=== PATIENT | male | born 1950 | race Caucasian/White ===

== ENCOUNTER 2020-11-10 07:39 | Outpatient (CLI) | payer MEDICARE, MEDICAID, SELFPAY ==
--- NOTE | 2020-11-10 08:04 | CT_ITS ---
WS: [id number] CT RIGHT HIP, NONCONTRAST. HISTORY: RT HIP PAIN Technique: All CT scans at [facility] use at least one of these dose optimization techniq ues: automated exposure control; mA and/or kV adjustment per patient size (includes targeted exams wh ere dose is matched to clinical indication); or iterative reconstruction. DLP: 725.73 mGycm COMPARISON: Radiographs 01/01/2019. No fractures or dislocations. No sclerotic or lytic changes in the bone. There is very minimal narrow ing of the hip joint. Bony fragment or calcific density anterior to the femoral head has been present since 2010. May be from prior trauma. No significant joint effusion. Soft tissues surrounding the hi p are age appropriate. Moderate arterial calcifications in the femoral and deep profunda. CT/CT hip RT wo con* [id number] IMPRESSION: 1. Very mild degenerative changes at the hip joint. 2. No fracture or dislocation. 3. Atherosclerotic calcifications.
== END 2020-11-10 07:40 | disposition home or self-care (01) ==
LOC: RADWPI 07:42
PROVIDERS: PCP Family Medicine; Visit Provider Family Medicine
DX: M25.551 Pain in right hip (principal)
CPT/HCPCS: 73700

== ENCOUNTER 2020-12-10 13:29 | Outpatient (CLI) | payer MEDICARE, MEDICAID, SELFPAY ==
--- NOTE | 2020-12-10 14:12 | CT_ITS ---
WS: [id number] CT ABDOMEN PELVIS TECHNIQUE: Contrast-enhanced CT of the abdomen and pelvis with coronal and sagittal reformatted image s. CLINICAL INFORMATION: RIGHT LOWER QUADRANT PAIN COMPARISON: CT 6 ,018 DLP: 1115.[address] scans at [facility] use at least one of these dose optimization techniques: automat ed exposure control; mA and/or kV adjustment per patient size (includes targeted exams where dose is matched to clinical indication); or iterative reconstruction. FINDINGS: Diffuse thickening with inflammatory stranding involving the sigmoid colon left lower quadrant. Findi ngs consistent with acute diverticulitis. Induration in the surrounding fat. No evidence of drainable abscess or fluid collection. Diffuse fatty infiltration liver. Hepatomegaly. Cholecystectomy. Inspissated secretions in the proxim al appendix but no evidence of acute appendicitis. Appendix measures approximately 5.3 mm. No signifi cant surrounding inflammatory stranding or edema. Portal vein and splenic vein are patent. Fatty atrophy of the pancreas. Normal GE junction. Lung base s are well aerated. Adrenal glands are normal. Normal renal parenchymal enhancement. No hydronephrosi s. Exophytic right renal cortical cyst. Normal caliber abdominal aorta. Tiny fat-containing hernia. CT/CT abdomen pelvis w con* [id number] IMPRESSION: 1. Diffuse thickening with inflammatory stranding and edema involving the sigm oid colon left lower quadrant consistent with acute diverticulitis. No drainabl e abscess or fluid collection. 2. Inspissated high attenuation secretions in the proximal appendix which marcial ures 5.3 mm although no evidence of acute appendicitis. Distal appendix is norm al. If suspicion for acute appendicitis, recommend short interval follow-up. 3. Hepatomegaly with diffuse fatty infiltration liver. 4. Cholecystectomy. 5. No other significant changes from previous.
[2020-12-10 14:58] LABS: Blood Urea Nitrogen 14 mg/dL (8-23); Glomerular Filtration Rate 66.4 mL/min (90-130)
[2020-12-10] MEDS: iohexol 300 mg/mL 100 mL Btl IV (15:00)
== END 2020-12-10 13:30 | disposition home or self-care (01) ==
LOC: RADWPI 13:38
PROVIDERS: PCP Family Medicine; Visit Provider Family Medicine
DX: R10.31 Right lower quadrant pain (principal); R60.9 Edema, unspecified; K76.0 Fatty (change of) liver, not elsewhere classified; Z90.49 Acquired absence of other specified parts of digestive tract
CPT/HCPCS: 74177; 82565; 84520; Q9967

== ENCOUNTER 2020-12-31 20:00 | Outpatient (CLI) | payer MEDICARE, MEDICAID, SELFPAY | END 2020-12-31 20:01 | disposition home or self-care (01) | LOC: SLEEP 01-01 09:24 | PROVIDERS: PCP Family Medicine; Visit Provider Family Medicine | DX: G47.33 Obstructive sleep apnea (adult) (pediatric) (principal) | CPT/HCPCS: 95811 ==

== ENCOUNTER 2021-05-10 15:00 | Outpatient (CLI) | payer MEDICARE, MEDICAID, SELFPAY ==
--- NOTE | 2021-05-10 15:08 | XR_ITS ---
WS: [id number] Exam: XR chest 2V* [id number] Date/Time of Exam: 05/10/2021 3:08 PM Reason For Exam: HEMOPTYSIS Comparison 06/09/2017. The lungs are clear and fully inflated. Cardiomediastinal silhouette is unremarkable. A permanent car diac pacer superimposes the left chest. No pleural effusion. Normal regional bony structures. XR/XR chest 2V* [id number] IMPRESSION: 1. No acute cardiopulmonary finding. No change.
== END 2021-05-10 15:01 | disposition home or self-care (01) ==
PROVIDERS: PCP Family Medicine; Visit Provider Family Medicine
DX: R04.2 Hemoptysis (principal)
CPT/HCPCS: 71046

== ENCOUNTER 2021-05-13 12:40 | Outpatient (CLI) | payer MEDICARE, MEDICAID, SELFPAY ==
--- NOTE | 2021-05-13 12:55 | CT_ITS ---
WS: [id number] Exam: CT chest w con* [id number] Date/Time of Exam: 05/13/2021 1:18 PM Reason For Exam: HEMOPTYSIS DLP: 955.[address] scans at [facility] use at least one of these dose optimization techniques: automat ed exposure control; mA and/or kV adjustment per patient size (includes targeted exams where dose is matched to clinical indication); or iterative reconstruction. The lungs are clear and fully expanded. The airway is patent. The thoracic aorta is normal in caliber . No significant mediastinal or hilar lymphadenopathy. No pleural or pericardial effusion noted. Pace r leads are noted in the heart. No destructive bone lesions are seen. CT sections of the upper abdome n are unremarkable. CT/CT chest w con* [id number] IMPRESSION: 1. No sign of pulmonary mass or significant lymphadenopathy in the chest. 2. Mild plaque atelectasis noted in the medial aspect of the right lower lobe.
[2021-05-13 13:43] LABS: Blood Urea Nitrogen 15 mg/dL (8-23); Glomerular Filtration Rate 83.4 mL/min (90-130)
[2021-05-13] MEDS: iohexol 300 mg/mL 100 mL Btl IV (13:55)
== END 2021-05-13 12:41 | disposition home or self-care (01) ==
PROVIDERS: PCP Family Medicine; Visit Provider Family Medicine
DX: R04.2 Hemoptysis (principal); J98.11 Atelectasis
CPT/HCPCS: 71260; 82565; 84520; Q9967

== ENCOUNTER 2021-07-13 09:59 | Outpatient (CLI) | payer MEDICARE, MEDICAID, SELFPAY ==
--- NOTE | 2021-07-13 10:06 | XR_ITS ---
WS: [id number] Exam: XR KUB [id number] Date/Time of Exam: 07/13/2021 10:06 AM Reason For Exam: ABDOMINAL BLOATING/ABDOMINAL PAIN Comparison 09/27/2016. No bowel obstruction or free air. No sign of organ enlargement. Signs of prior cholecystectomy. Regio nal bony elements are unremarkable. XR/XR KUB [id number] IMPRESSION: 1. No acute abdominal finding.
== END 2021-07-13 10:00 | disposition home or self-care (01) ==
PROVIDERS: PCP Family Medicine; Visit Provider Family Medicine
DX: R10.9 Unspecified abdominal pain (principal); R14.0 Abdominal distension (gaseous)
CPT/HCPCS: 74018

== ENCOUNTER → 2021-11-19 09:14 | Outpatient (BNVA) | payer MEDICARE, MEDICAID, SELFPAY | PROVIDERS: PCP Family Medicine; Visit Provider Internal Medicine Cardiovascular Disease | DX: Z95.0 Presence of cardiac pacemaker (principal) ==

== ENCOUNTER → 2021-12-20 09:48 | Outpatient (BNVA) | payer MEDICARE, MEDICAID, SELFPAY | PROVIDERS: PCP Family Medicine; Visit Provider Internal Medicine Cardiovascular Disease | DX: I48.0 Paroxysmal atrial fibrillation (principal); I10 Essential (primary) hypertension; J44.9 Chronic obstructive pulmonary disease, unspecified | CPT/HCPCS: 99214 ==

== ENCOUNTER → 2022-06-20 09:47 | Outpatient (BNVA) | payer MEDICARE, MEDICAID, SELFPAY | PROVIDERS: PCP Family Medicine; Visit Provider Internal Medicine Cardiovascular Disease | DX: I48.0 Paroxysmal atrial fibrillation (principal); Z95.0 Presence of cardiac pacemaker; G47.33 Obstructive sleep apnea (adult) (pediatric); I10 Essential (primary) hypertension; J44.9 Chronic obstructive pulmonary disease, unspecified | CPT/HCPCS: 99213; 99214 ==

== ENCOUNTER 2022-09-04 01:20 | Emergency (ER) | payer MEDICARE, MEDICAID, SELFPAY ==
[2022-09-04 01:25] VITALS: BP 156/93; PULSE 61; RESP 22; TEMP 36.4; O2SAT 100
[2022-09-04 01:30] VITALS: BP 162/98; PULSE 64; RESP 15; O2SAT 100
--- NOTE | 2022-09-04 01:31 | ECG_ITS ---
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1950 Requested By: Bertin Silverio Order Number: [id number] Robert MD: Zenon Pierre Measurements Intervals [place] Rate: 63 P: 0 OK: 0 QRS: -86 QRSD: 159 T: 80 QT: 425 QTc: 438 Interpretive Statements ELECTRONIC VENTRICULAR PACEMAKER ABNORMAL RHYTHM ECG INTERPRETATION BASED ON A DEFAULT AGE OF 40 YEARS Compared to ECG 06/07/2017 12:01:40 Sinus rhythm no longer present Left-axis deviation no longer present Electronically Signed On 09-04-2022 15:13:07 REAL ESTATE ATTORNEY by Zenon Pierre [id number] f
--- NOTE | 2022-09-04 01:56 | XRR_ITS ---
PROCEDURE INFORMATION: Exam: XR Chest Exam date and time: 09/04/2022 2:05 AM Age: 72 years old Clinical indication: Shortness of breath; Prior surgery; Surgery date: 6+ months; Surgery type: Pacemaker; Additional info: SOB TECHNIQUE: Imaging protocol: Radiologic exam of the chest. Views: 1 view. COMPARISON: CT chest w con* [id number] 05/13/2021 1:49 PM FINDINGS: Tubes, catheters and devices: There is left-sided pacemaker with intact leads overlying the right atrium and right ventricle. Lungs: Unremarkable. No consolidation. Pleural spaces: Unremarkable. No pleural effusion. No pneumothorax. Heart/Mediastinum: Unremarkable. No cardiomegaly. Bones/joints: Unremarkable. XR/XR chest 1V portable [id number] IMPRESSION: No acute disease.
[2022-09-04 02:03] LABS: Basophils # 0.1 10^3/uL (0.0-0.1); Basophils % 1.1 %; Eosinophils # 0.3 10^3/uL (0.0-0.8); Eosinophils % 4.4 %; Hematocrit 47.1 % (42.0-52.0); Hemoglobin 15.9 g/dL (11.7-16.6); Lymphocytes % 30.2 %; Mean Corpuscular HGB Conc 33.8 g/dL (30.0-36.0); Mean Corpuscular Hemoglobin 30.3 pg (28.0-34.0); Mean Corpuscular Volume 89.9 fl (80-94); Mean Platelet Volume 11.1 fL (7.4-10.4); Monocytes # 0.8 10^3/uL (0.2-0.9); Monocytes % 12.4 %; Neutrophils # 3.41 10^3/uL (1.8-7.7); Neutrophils % 51.4 %; Nucleated Red Blood Cells % 0 %; Platelet Count 161 10^3/cmm (130-400); Red Blood Count 5.24 10^6/uL (4.1-5.3); Red Cell Distribution Width 13.2 % (12.1-15.1); White Blood Count 6.6 10^3/uL (4.0-10.0)
--- NOTE | 2022-09-04 02:05 | W.ED.SOB ---
HPI - SOB/Dyspnea General: Chief Complaint: Shortness of Breath/Dyspnea Stated Complaint: SOB Time Seen by Provider: 09/04/22 01:28 Source: patient History of Present Illness: HPI Narrative: 72-year-old gentleman presenting with shortness of breath. He says it is hard to breathing, and has been so for the past week or so. He was seen at his doctor's office on the 12th, and was given medicine for fluid because his legs have been swelling. He has had a nonproductive cough. No fever. Significant nasal congestion which she says makes it hard to breathe. No overt chest pain. MD elicited complaint: shortness of breath and cough Pertinent past history: other Onset (ago): day(s) Timing: progressively worsening Severity: moderate Exacerbating factors: lying flat and exertion Relieving factors: nothing Associated symptoms: Reports chest congestion, cough, lightheadedness and nausea; Deny abdominal pain, chest pain, diaphoresis, dizziness or vomiting Treatment prior to arrival: other Review of Systems Const: Denies: diaphoresis Eyes: Denies: change in vision ENMT: Denies: throat pain Card: Reports: lightheadedness; Denies: chest pain Resp: Reports: chest congestion GI: Reports: nausea; Denies: abdominal pain or vomiting Skin/Breast: Denies: rash Neuro: Denies: headache(s) or dizziness PFS ED PFSH: Medical History Anemia Anxiety Atrial fibrillation Pt has prolonged bleeding - so not on any anticoagulant Chronic prostatitis COPD (chronic obstructive pulmonary disease) Daytime somnolence GERD (gastroesophageal reflux disease) Hypertension Hypertension 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 requiring medication Osteoarthritis Pacemaker Surgical History History of hand surgery History of permanent cardiac pacemaker placement History of tonsillectomy Hx of cholecystectomy S/P TURP Family History Mother CAD (coronary artery disease) Brother CAD (coronary artery disease) Sister Diabetes Denies family history of Clotting disorder Dementia Chronic kidney disease (CKD) Suicide Anesthesia complication Bleeding disorder Lung disease Cancer Stroke Social History Smoking and tobacco status: never smoked Alcohol intake: never Physical Exam Const: COMMON NORMALS: no acute distress GENERAL APPEARANCE: cooperative and anxious HENMT: COMMON NORMALS: normocephalic, atraumatic, external ears normal and Normal external nose present HEAD & SCALP: normocephalic and atraumatic NOSE: Normal external nose present and Normal nares present EXTERNAL EAR: Yes external ears normal Eye: COMMON NORMALS: Equal, round and reactive pupils present and EOMs intact bilaterally PUPIL: Yes Equal, round and reactive pupils present Neck/C-Spine: COMMON NORMALS: full ROM GENERAL: Yes trachea midline Chest: CHEST: Yes Symmetrical chest wall rise Resp: COMMON NORMALS: normal respiratory effort, No use of accessory muscles and clear to auscultation bilaterally AUSCULTATION: clear to auscultation bilaterally Cardio: COMMON NORMALS: regular rate and regular rhythm RATE: regular rate RHYTHM: regular rhythm GI: COMMON NORMALS: Normal to inspection, nondistended, normoactive bowel sounds present and Soft to palpation PALPATION: Yes Soft to palpation Extremity: GENERAL: Yes edema (1+) Neuro: EMERALD COMA SCALE: document GCS findings [place] coma scale eye opening: Spontaneous [place] coma scale verbal response: Orientated [place] coma scale motor response: Obey commands [place] coma scale total score: 15 Psych: COMMON NORMALS: mental status grossly normal Course Vital Signs: Vital signs: Vital Signs Temperature 97.6 F 09/04/22 01:25 Pulse Rate 64 09/04/22 02:30 Respiratory Rate 21 H 09/04/22 02:30 Blood Pressure 136/85 09/04/22 02:30 Pulse Oximetry 100 09/04/22 02:30 Oxygen Delivery Me thod 09/04/22 01:30 MDM - SOB/Dyspnea Medical Decision Making 72-year-old male gentleman complains of congestion and shortness of breath. His saturation has been 100% essentially his entire stay on room air. His chest x-ray does not reveal infiltrate although it does show cardiomegaly. His vitals are good otherwise. His CBC is normal. His BMP is not remarkable. His BNP is only 954. Swabs for influenza and COVID are negative. Given his congestion, will be treated for acute bronchitis. Lab Data 09/04/22 01:44 09/04/22 01:44 Labs/Radiology: Laboratory Results WBC 6.6 10^3/uL (4.0-10.0) 09/04/22 01:44 RBC 5.24 10^6/uL (4.1-5.3) 09/04/22 01:44 Hgb 15.9 g/dL (11.7-16.6) 09/04/22 01:44 Hct 47.1 % (42.0-52.0) 09/04/22 01:44 MCV 89.9 fl (80-94) 09/04/22 01:44 MCH 30.3 pg (28.0-34.0) 09/04/22 01:44 MCHC 33.8 g/dL (30.0-36.0) 09/04/22 01:44 RDW 13.2 % (12.1-15.1) 09/04/22 01:44 Plt Count 161 10^3/cmm (130-400) 09/04/22 01:44 MPV 11.1 fL (7.4-10.4) H 09/04/22 01:44 Neut % (Auto) 51.4 % 09/04/22 01:44 Lymph % (Auto) 30.2 % 09/04/22 01:44 [place] % (Auto) 12.4 % 09/04/22 01:44 Eos % (Auto) 4.4 % 09/04/22 01:44 Baso % (Auto) 1.1 % 09/04/22 01:44 Neut # (Auto) 3.41 10^3/uL (1.8-7.7) 09/04/22 01:44 Lymph # (Auto) 2.0 10^3/uL (0.8-4.8) 09/04/22 01:44 [place] # (Auto) 0.8 10^3/uL (0.2-0.9) 09/04/22 01:44 Eos # (Auto) 0.3 10^3/uL (0.0-0.8) 09/04/22 01:44 Baso # (Auto) 0.1 10^3/uL (0.0-0.1) 09/04/22 01:44 Nucleated RBC % (auto) 0 % 09/04/22 01:44 Nucleated RBCs # 0.0 /100WBC 09/04/22 01:44 Sodium 133 mmol/L (136-145) L 09/04/22 01:44 Potassium 4.2 mmol/L (3.5-5.1) 09/04/22 01:44 Chloride 101 mmol/L (98-107) 09/04/22 01:44 Carbon Dioxide 23 mmol/L (22-29) 09/04/22 01:44 Anion Gap 13.2 (5-19) 09/04/22 01:44 BUN 12 mg/dL (8-23) 09/04/22 01:44 Creatinine 0.7 mg/dL (0.7-1.2) 09/04/22 01:44 GFR Calculation Not Reportable 09/04/22 01:44 Glucose 100 mg/dL (65-115) 09/04/22 01:44 Calculated Osmolality 276 mOsm/kg (285-295) L 09/04/22 01:44 Calcium 8.9 mg/dL (8.5-10.5) 09/04/22 01:44 Total Bilirubin 0.4 mg/dL (0.15-1.2) 09/04/22 01:44 AST 32 U/L (0-40) 09/04/22 01:44 ALT 36 U/L (0-41) 09/04/22 01:44 Alkaline Phosphatase 62 U/L (40-130) 09/04/22 01:44 NT-Pro-B Natriuret Pep 954 pg/mL (0-125) H 09/04/22 01:44 Total Protein 6.9 g/dL (6.6-8.7) 09/04/22 01:44 Albumin 4.1 g/dL (3.5-5.2) 09/04/22 01:44 Globulin 2.8 g/dL (1.3-4.6) 09/04/22 01:44 Influenza Type A Ag negative (Negative) 09/04/22 02:04 Influenza Type B Ag negative (Negative) 09/04/22 02:04 SARS-CoV-2 Ag (Rapid) negative (Negative) 09/04/22 02:04 Discharge Plan Discharge Patient Disposition: Home Clinical Impression: Acute bronchiolitis Condition: Stable Prescriptions: New doxycycline hyclate 100 mg capsule 100 mg PO BID 7 Days Qty: 14 0RF albuterol sulfate 90 mcg/actuation HFA aerosol inhaler 2 inh inhalation Q4H PRN (Reason: shortness of breath or wheezing) Qty: 6.7 1RF Mucinex 600 mg tablet extended release 12hr 600 mg PO BID PRN (Reason: congestion) Qty: 14 0RF No Action enalapril maleate [Vasotec] 20 mg tablet 20 mg PO BID docusate sodium [Colace] 100 mg capsule 100 mg PO DAILY polyethylene glycol 3350 [Miralax] 17 gram powder in packet 17 gm PO BID simethicone [Gas Relief (simethicone)] 180 mg capsule 180 mg PO BID PRN montelukast 10 mg tablet 10 mg PO DAILY melatonin 10 mg tablet extended release 10 mg PO BEDTIME sulindac 150 mg tablet 150 mg PO BID tamsulosin 0.4 mg capsule 0.4 mg PO DAILY hydrocodone-acetaminophen 5-325 mg tablet 1 tab PO BID PRN (Reason: pain) finasteride 5 mg tablet 5 mg PO DAILY cyclobenzaprine 10 mg tablet See Rx Instructions .ROUTE .COMPLEX Qty: 30 0RF Dose Instruction: TAKE 1 TABLET BY MOUTH EVERY 8 HOURS NEEDED Rx Instructions: TAKE 1 TABLET BY MOUTH EVERY 8 HOURS NEEDED Metamucil 3.4 gram/5.4 gram powder 1 tbsp PO BID Qty: 660 2RF Rx Instructions: mix into at least 8 oz of water or juice before administering potassium chloride [Klor-Con M10] 10 mEq tablet,ER particles/crystals 10 meq PO DAILY Qty: 30 3RF Rx Instructions: Take when taking Furosemide furosemide 20 mg tablet 20 mg PO QAM Qty: 30 0RF Rx Instructions: Take with Potassium pill Discharge Orders: Discharge ED (Routine); Ordered 09/04/22 Ordered By: Bertin Villafuerte Referrals: Jean Claude Nieves MD [Primary Care Provider] - 1-3 days Patient Instructions: Acute Bronchitis (ED) Activity Restrictions/Additional Instructions: Return for worsening shortness of breath despite treatment, fever despite 3-4 doses of antibiotics, chest pain, any other concerning symptoms. Use your inhaler every 4 hours while awake for the next 48 hours, then as needed. Coding Level of Care Code ED Hearse Driver for Genevieveg Fwd Exam Comprehensive
[2022-09-04 02:28] LABS: Influenza A by IFA negative (Negative); Influenza B by IFA negative (Negative)
[2022-09-04 02:29] LABS: SARS Covid-2 Antigen negative (Negative)
[2022-09-04 02:30] VITALS: BP 136/85; PULSE 64; RESP 21; O2SAT 100
[2022-09-04 02:32] LABS: Alanine Aminotransferase 36 U/L (0-41); Albumin Level 4.1 g/dL (3.5-5.2); Alkaline Phosphatase 62 U/L (40-130); Anion Gap 13.2 (5-19); Aspartate Amino Transferase 32 U/L (0-40); Blood Urea Nitrogen 12 mg/dL (8-23); Calcium 8.9 mg/dL (8.5-10.5); Carbon Dioxide 23 mmol/L (22-29); Chloride 101 mmol/L (98-107); Globulin 2.8 g/dL (1.3-4.6); Glucose 100 mg/dL (65-115); NT Pro B Type Natriuretic Pept 954 pg/mL (0-125); Osmolality Calculated 276 mOsm/kg (285-295); Potassium 4.2 mmol/L (3.5-5.1); Sodium 133 mmol/L (136-145); Total Bilirubin 0.4 mg/dL (0.15-1.2); Total Protein 6.9 g/dL (6.6-8.7)
[2022-09-04] MEDS: doxycycline 100 mg Tablet PO (02:57)
[2022-09-04] MEDS: dexamethasone 4 mg/mL INJ 8 MG IVP (02:57)
[2022-09-04 03:06] VITALS: BP 146/96; PULSE 70; RESP 25; O2SAT 99
== END 2022-09-04 03:15 | disposition home or self-care (01) ==
PROVIDERS: Emergency Provider Emergency Medicine; PCP Family Medicine
DX: J44.0 Chronic obstructive pulmonary disease with (acute) lower respiratory infection (principal); J21.9 Acute bronchiolitis, unspecified; Z20.822 Contact with and (suspected) exposure to COVID-19; Z95.0 Presence of cardiac pacemaker
CPT/HCPCS: 71045; 80053; 83880; 85025; 87426; 87804; 93005; 96374; 99285; J1100

== ENCOUNTER → 2022-10-04 09:35 | Outpatient (BNVA) | payer MEDICARE, MEDICAID, SELFPAY | PROVIDERS: PCP Family Medicine; Visit Provider Family Medicine | DX: R60.9 Edema, unspecified (principal); I48.91 Unspecified atrial fibrillation; I10 Essential (primary) hypertension | CPT/HCPCS: 80053; 83880; 85025 ==

== ENCOUNTER 2022-10-21 09:44 | Outpatient (CLI) | payer MEDICARE, MEDICAID, SELFPAY ==
--- NOTE | 2022-10-21 10:00 | USCV_ITS ---
Keon Kowalski Age: 72 Gender: M : 1950 Exam Date: 10/21/2022 10:00 Ordering Phys: Jean Claude Nieves MD Technologist: BRAYAN [place] [facility] [place]: BLE PAIN AND SWELLING HISTORY: Lower extremity pain. Lower extremity swelling. PROCEDURES: Venous duplex imaging was performed in bilateral lower extremities. The following venous structures were evaluated: common femoral vein, profunda vein, proximal portion of the greater saphenous vein, superficial femoral vein, and the popliteal vein. In addition, the posterior tibial and peroneal trunk were evaluated. Serial compression, augmentation maneuvers, and spectral Doppler flow evaluation were performed. FINDINGS: Normal 2-D Doppler and augmentation and compressibility throughout the lower extremity venous structures. Additional imaging through the proximal calf veins also reveals no thrombus. Limited evaluation of the greater saphenous vein is patent with no thrombus. CONCLUSIONS No DVT bilateral lower extremities. Dr. Elidia Barrera DO (Electronically Signed) Final Date: 21 October 2022 11:49 S
== END 2022-10-21 09:45 | disposition home or self-care (01) ==
LOC: RAD 09:46
PROVIDERS: PCP Family Medicine; Visit Provider Family Medicine
DX: M79.89 Other specified soft tissue disorders (principal); M79.604 Pain in right leg; M79.605 Pain in left leg
CPT/HCPCS: 93970

== ENCOUNTER 2023-04-18 10:04 | Outpatient (CLI) | payer MEDICARE, MEDICAID, SELFPAY ==
--- NOTE | 2023-04-18 10:17 | XRR_ITS ---
PROCEDURE INFORMATION: Exam: XR Chest Exam date and time: 04/18/2023 10:26 AM Age: 73 years old Clinical indication: Cough with hemorrhage; Prior surgery; Surgery date: 6+ months; Surgery type: Pacemaker; Additional info: Hemoptysis TECHNIQUE: Imaging protocol: Radiologic exam of the chest. Views: 2 views. Total images: 2 COMPARISON: CR XR chest 1V portable [id number] 09/04/2022 2:05 AM FINDINGS: Tubes, catheters and devices: A pacemaker device is present, its leads in appropriate position. Lungs: Unremarkable. No consolidation. Pleural spaces: Unremarkable. No pleural effusion. No pneumothorax. Heart/Mediastinum: Heart size is stable when compared to the prior exam. Bones/joints: Unremarkable. Organs: Surgical clips are present in the right upper quadrant which are suggestive of prior cholecystectomy. XR/XR chest 2V* [id number] IMPRESSION: No acute cardiopulmonary process.
[2023-04-18 10:48] LABS: Basophils # 0.1 10^3/uL (0.0-0.1); Basophils % 1.1 %; Eosinophils # 0.2 10^3/uL (0.0-0.8); Eosinophils % 4.1 %; Hematocrit 46.7 % (42.0-52.0); Hemoglobin 15.6 g/dL (11.7-16.6); Lymphocytes # 1.7 10^3/uL (0.8-4.8); Lymphocytes % 30.2 %; Mean Corpuscular HGB Conc 33.4 g/dL (30.0-36.0); Mean Corpuscular Hemoglobin 29.2 pg (28.0-34.0); Mean Corpuscular Volume 87.5 fl (80-94); Mean Platelet Volume 10.2 fL (7.4-10.4); Monocytes # 0.7 10^3/uL (0.2-0.9); Monocytes % 12.4 %; Neutrophils # 2.87 10^3/uL (1.8-7.7); Neutrophils % 51.7 %; Nucleated Red Blood Cells % 0 %; Platelet Count 150 10^3/cmm (130-400); Red Blood Count 5.34 10^6/uL (4.1-5.3); Red Cell Distribution Width 13.2 % (12.1-15.1); White Blood Count 5.6 10^3/uL (4.0-10.0)
[2023-04-18 11:00] LABS: INR 1.03 (0.8-1.2)
[2023-04-18 11:04] LABS: Alanine Aminotransferase 16 U/L (0-41); Albumin Level 3.9 g/dL (3.5-5.2); Alkaline Phosphatase 75 U/L (40-130); Anion Gap 13.4 (5-19); Aspartate Amino Transferase 18 U/L (0-40); Blood Urea Nitrogen 11 mg/dL (8-23); Calcium 8.7 mg/dL (8.5-10.5); Carbon Dioxide 27 mmol/L (22-29); Chloride 101 mmol/L (98-107); Globulin 2.7 g/dL (1.3-4.6); Glucose 100 mg/dL (65-115); Osmolality Calculated 283 mOsm/kg (285-295); Potassium 4.4 mmol/L (3.5-5.1); Sodium 137 mmol/L (136-145); Total Bilirubin 0.5 mg/dL (0.15-1.2); Total Protein 6.6 g/dL (6.6-8.7)
== END 2023-04-18 10:05 | disposition home or self-care (01) ==
LOC: RAD 10:09
PROVIDERS: PCP Family Medicine; Visit Provider Family Medicine
DX: R04.2 Hemoptysis (principal); Z51.81 Encounter for therapeutic drug level monitoring; Z95.0 Presence of cardiac pacemaker
CPT/HCPCS: 36415; 71046; 80053; 85025; 85610

== ENCOUNTER → 2023-06-05 09:54 | Outpatient (BNVA) | payer MEDICARE, MEDICAID, SELFPAY | PROVIDERS: PCP Family Medicine; Visit Provider Internal Medicine Cardiovascular Disease | DX: I48.0 Paroxysmal atrial fibrillation (principal); R06.02 Shortness of breath; M79.89 Other specified soft tissue disorders; Z95.0 Presence of cardiac pacemaker; G47.33 Obstructive sleep apnea (adult) (pediatric); I11.0 Hypertensive heart disease with heart failure; I50.30 Unspecified diastolic (congestive) heart failure | CPT/HCPCS: 36415; 80048; 83880; 99214 ==

== ENCOUNTER 2023-06-06 06:36 | Outpatient (CLI) | payer MEDICARE, MEDICAID, SELFPAY ==
--- NOTE | 2023-06-06 06:46 | CT_ITS ---
WS: [id number] CT chest w con* [id number] HISTORY: Hemoptysis TECHNIQUE: Axial imaging performed through the thorax. Coronal and sagittal reformats are submitted. All CT scans at [facility] use at least one of these dose optimization techniques: automated exposure control; mA and/or kV adjustment per patient size (includes targeted exams where dose is mat ched to clinical indication); or iterative reconstruction. CONTRAST: Omnipaque 350; 100 mL IV. DLP: 553.20 mGy COMPARISON: 05/13/2021 and chest radiograph 04/18/2023 Lungs and central airway: Lungs are slightly hyperexpanded. There are a few scattered benign granulom natalia. No pulmonary mass or nodule or pneumonia. No significant bronchiectasis Pleura: Minimal LEFT pleural-based calcifications. No associated mass. Heart and pericardium: Mild LEFT heart enlargement. No pericardial effusion. Mediastinum and yogi: No significantly enlarged lymph nodes. There is mildly prominent bilateral yogi r lymphoid tissue but not significantly enlarged. Vessels: LEFT subclavian pacer. Very mild atherosclerosis aorta. Normal sized pulmonary artery. No ce ntral filling defects. Chest wall and lower neck: No soft tissue masses. Upper abdomen: Small hiatal hernia. No adrenal mass. Prior cholecystectomy. Osseous structures: Mild thoracic spondylosis. Bone island LEFT glenoid. IMPRESSION: 1. No pulmonary mass, nodule or pneumonia. 2. Very minimal LEFT pleural calcifications with no associated mass. May be related to a prior proced ure or effusion. Not a typical distribution for asbestosis. 3. Mild cardiomegaly. 4. No adenopathy. 5. Prior cholecystectomy.
[2023-06-06] MEDS: iohexol 350 mg/mL 500 mL Btl (per mL) IV (06:59)
== END 2023-06-06 06:37 | disposition home or self-care (01) ==
LOC: RAD 06:37
PROVIDERS: PCP Family Medicine; Visit Provider Family Medicine
DX: R04.2 Hemoptysis (principal); I51.7 Cardiomegaly
CPT/HCPCS: 71260; 99204; Q9967

== ENCOUNTER 2023-06-16 10:54 | Outpatient (CLI) | payer MEDICARE, MEDICAID, SELFPAY ==
--- NOTE | 2023-06-16 11:00 | USCV_ITS ---
Keon Kowalski Age: 73 Gender: M : 1950 Exam Date: 06/16/2023 11:04 Ordering Phys: Felecia Barrera MD ([email or web address]) Technologist: Exam Location: [facility] Indication: chest pain murmur BP: 130 / 70 HR: 60 Rhythm: Sinus Technical Quality: Adequate MEASUREMENTS (Male / Female) Normal Values 2D ECHO LV Diastolic Diameter PLAX 3.4 cm 4.2 - 5.9 / 3.9 - 5.3 cm LV Systolic Diameter PLAX 2.6 cm IVS Diastolic Thickness 1.4 cm 0.6 - 1.0 / 0.6 - 0.9 cm IVS Systolic Thickness 2.1 cm LVPW Diastolic Thickness 1.4 cm 0.6 - 1.0 / 0.6 - 0.9 cm LVPW Systolic Thickness 1.9 cm LVOT Diameter 2.2 cm LV Ejection Fraction 2D Teich 39.7 % LV Ejection Fraction MOD 2C 69.1 % LV Ejection Fraction 2C AL 68.1 % LA Diameter 4.6 cm Aorta at Sinotubular Diameter 3.5 cm IVC Diameter 2.4 cm M-MODE Aortic Annulus Diameter 3.9 cm LA Ao Ratio MM 1.0 MV E Point Septal Separation 1.2 cm DOPPLER AV Peak Velocity 147.0 cm/s LVOT Peak Velocity 74.0 cm/s AV Area Cont Eq vti 2.1 cm squared AV Area Cont Eq pk 1.9 cm squared MV Area PHT 4.1 cm squared Mitral E to A Ratio 3.1 MV E' Velocity 92.0 cm/s Mitral E to LV E' Septal Ratio 17.7 TR Peak Velocity 340.3 cm/s TR Peak Gradient 46.3 mmHg TV Peak E Velocity 95.0 cm/s Right Atrial Pressure 3.0 mmHg Pulmonary Artery Systolic Pressu 49.3 mmHg RV Acceleration Time 0.1 s FINDINGS Left Ventricle Hypokinetic apical septal and apical lateral lieberman. Normal LV size and ejection fraction of 68%. Right Ventricle Catheter/pacemaker wire in the right ventricular cavity. Right Atrium Mildly increased right atrial size. Catheter/pacemaker wire in the right atrial cavity. Left Atrium Mildly increased left atrial size. Mitral Valve No gross abnormalities noted Aortic Valve Minimally thickened Tricuspid Valve Trace tricuspid valve regurgitation. Mild pulmonary hypertension Etimated pulmonary artery peak systolic pressure 49 mm of Hg. Pulmonic Valve Pulmonic valve not well visualized. Pericardium Normal pericardium without effusion. Aorta Normal ascending aorta dimension. IVC Inferior vena cava not visualized. CONCLUSIONS Hypokinetic apical septal and apical lateral lieberman. Normal LV size and ejection fraction of 68%. Mild biatrial enlargement Pacemaker wire in the right atrium and right ventricle Minimally thickened aortic valve Trace tricuspid valve regurgitation. Mild pulmonary hypertension Etimated pulmonary artery peak systolic pressure 49 mm of Hg. There is no pericardial effusion. Compared to the study from 05/20/2017. The biatrial enlargement/pacemaker wire- appeared to be new Dr Felecia Barrera MD [facility] (Electronically Signed) Final Date: 19 June 2023 14:00 S
== END 2023-06-16 10:55 | disposition home or self-care (01) ==
PROVIDERS: PCP Family Medicine; Visit Provider Internal Medicine Cardiovascular Disease
DX: R06.09 Other forms of dyspnea (principal); I50.9 Heart failure, unspecified; Z95.0 Presence of cardiac pacemaker; I35.8 Other nonrheumatic aortic valve disorders; I27.20 Pulmonary hypertension, unspecified
CPT/HCPCS: 93306

== ENCOUNTER 2023-06-27 07:58 | Outpatient (CLI) | payer MEDICARE, MEDICAID, SELFPAY | END 2023-06-27 07:59 | disposition home or self-care (01) | LOC: RT 07:59 | PROVIDERS: PCP Family Medicine; Visit Provider Internal Medicine Pulmonary Disease | DX: R06.09 Other forms of dyspnea (principal); R06.02 Shortness of breath | CPT/HCPCS: 94010; 94618; 94726; 94729 ==

== ENCOUNTER 2023-08-15 13:46 | Outpatient (CLI) | payer MEDICARE, MEDICAID, SELFPAY ==
[2023-08-15 14:33] LABS: Anion Gap 12.5 (5-19); Blood Urea Nitrogen 8 mg/dL (8-23); Calcium 8.8 mg/dL (8.5-10.5); Carbon Dioxide 31 mmol/L (22-29); Chloride 96 mmol/L (98-107); Glucose 143 mg/dL (65-115); NT Pro B Type Natriuretic Pept 624 pg/mL (0-125); Osmolality Calculated 281 mOsm/kg (285-295); Potassium 4.5 mmol/L (3.5-5.1); Sodium 135 mmol/L (136-145)
== END 2023-08-15 13:47 | disposition home or self-care (01) ==
LOC: LAB 13:47
PROVIDERS: PCP Family Medicine; Visit Provider Internal Medicine Cardiovascular Disease
DX: R06.02 Shortness of breath (principal)
CPT/HCPCS: 36415; 80048; 83880

== ENCOUNTER → 2023-09-04 14:11 | Outpatient (BNVA) | payer MEDICARE, MEDICAID, SELFPAY | PROVIDERS: PCP Family Medicine; Visit Provider Internal Medicine Pulmonary Disease | DX: R06.09 Other forms of dyspnea (principal); R04.2 Hemoptysis; I50.32 Chronic diastolic (congestive) heart failure; G47.33 Obstructive sleep apnea (adult) (pediatric) | CPT/HCPCS: 99214 ==

== ENCOUNTER → 2023-12-26 09:44 | Outpatient (BNVA) | payer MEDICARE, MEDICAID, SELFPAY | PROVIDERS: PCP Family Medicine; Visit Provider Nurse Practitioner Family | DX: I10 Essential (primary) hypertension (principal); I48.0 Paroxysmal atrial fibrillation; Z95.0 Presence of cardiac pacemaker | CPT/HCPCS: 99214 ==

== ENCOUNTER → 2024-01-19 09:12 | Outpatient (BNVA) | payer MEDICARE, MEDICAID, SELFPAY | PROVIDERS: PCP Family Medicine; Visit Provider Family Medicine | DX: Z51.81 Encounter for therapeutic drug level monitoring (principal); R04.2 Hemoptysis; R73.09 Other abnormal glucose | CPT/HCPCS: 80053; 83036; 85025; 86141; 86480 ==

== ENCOUNTER → 2024-06-24 09:55 | Outpatient (BNVA) | payer MEDICARE, MEDICAID, SELFPAY | PROVIDERS: PCP Family Medicine; Visit Provider Internal Medicine Cardiovascular Disease | DX: I48.0 Paroxysmal atrial fibrillation (principal); Z95.0 Presence of cardiac pacemaker; I11.0 Hypertensive heart disease with heart failure; I50.32 Chronic diastolic (congestive) heart failure; Z87.891 Personal history of nicotine dependence | CPT/HCPCS: 99214 ==

== ENCOUNTER 2024-07-17 15:05 | Oncology outpatient (recurring) (ONCR) | payer MEDICARE, MEDICAID, SELFPAY ==
--- NOTE | 2024-07-01 13:23 | N.ONRAD NP_ITS ---
Radiation Oncology New Patient Visit Patient: Keon Kowalski MR#: [id number] : 1950> Age: 74> Sex: Male> Dictated by: Dr. Clemencia Panda Date of Service: 06/27/2024 Referring Physician(s) : Diagnosis: Adenocarcinoma the prostate Mary score 3+4 PSA approximately 6 (patient is on finasteride with a PSA of 2.8) Radiotherapy to date: Summary > No prior radiation therapy. Chief Complaint / History of Present Illness: Patient is a 74-year-old gentleman who had his first TURP in 2017. He had an additional TURP in 2019. His thinks that he may have even had a third TURP but they are not sure what the date would have been. He recently had an MRI of the pelvis which showed a lesion in the prostate and he subsequently had biopsies of the prostate done. He also had some abnormalities in the bladder wall which were biopsied and these were nonmalignant. At the time of biopsies he had positive biopsies from the right and the left side. 6 out of 10 were positive. His PSA on finasteride is 2.8. He is here today to discuss radiation as a treatment option. Current Medications: albuterol sulfate 90 mcg/actuation (Ventolin HFA) 2 puffs inhalation Q6H PRN citalopram TAKE 1 TABLET BY MOUTH EVERY DAY cyclobenzaprine TAKE 1 TABLET BY MOUTH EVERY 8 HOURS NEEDED docusate sodium TAKE 1 CAPSULE BY MOUTH TWICE A DAY NEEDED enalapril maleate TAKE 1 TABLET BY MOUTH TWICE A DAY finasteride TAKE 1 TABLET BY MOUTH EVERY DAY furosemide TAKE 1 TABLET BY MOUTH EVERY DAY IN THE MORNING hydrocodone-acetaminophen 5-325 mg 1 tab PO BID PRN magnesium hydroxide (Milk of Magnesia) 15 mL PO DAILY PRN melatonin ER 10 mg PO BEDTIME metoprolol tartrate TAKE 1 TABLET BY MOUTH TWICE A DAY montelukast TAKE 1 TABLET BY MOUTH EVERY DAY AT NIGHT polyethylene glycol 3350 (Miralax) 17 grams PO BID potassium chloride ER (Klor-Con M) TAKE 1 TABLET BY MOUTH EVERY DAY TAKE WITH FUROSEMIDE psyllium husk (Metamucil) 1 tbsp PO BID sennosides (senna) TAKE 2 TABLETS BY MOUTH TWICE A DAY NEEDED simethicone (Gas Relief (simethicone)) 180 mg PO BID PRN sulindac 150 mg PO BID tamsulosin TAKE 1 CAPSULE BY MOUTH EVERY DAY AT NIGHT Allergies: NKA Medical History: PFSH: Medical History Daytime somnolence Chronic prostatitis Atrial fibrillation Pt has prolonged bleeding - so not on any anticoagulant Hypertension 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 requiring medication Hypertension Pacemaker Anxiety Osteoarthritis GERD (gastroesophageal reflux disease) Anemia Surgical History History of permanent cardiac pacemaker placement History of tonsillectomy History of hand surgery Hx of cholecystectomy S/P TURP Family History: Mother CAD (coronary artery disease) Brother CAD (coronary artery disease) Sister Diabetes Denies family history of Clotting disorder Dementia Chronic kidney disease (CKD) Suicide Anesthesia complication Bleeding disorder Lung disease Cancer Stroke Social History: Smoking and tobacco/nicotine status: former use of tobacco/nicotine Alcohol intake: never Substance/Drug Use: never Current Complaints / Review of Systems: . Vital Signs: Performed on 06/27/2024 2:41 PM BMI - 30.076 kg/m2 (high), Height - 68 in, Weight - 197.8 lbs, Temperature - 96.8 f, Pulse - 70 /min, Respiration - 18 /min, O2 Sat - 97 %, Pain - 4, Fatigue - 0 and BP - 162/ 85 mm(hg)(high/). General: Patient is in no apparent distress. He is companied by his . HEENT: Normocephalic atraumatic. Pupils are equal, sclera clear, extraocular muscles intact. Cardiovascular: Regular rate and rhythm Pulmonary: Respiratory rate is regular and nonlabored Abdomen: Moderately protuberant and android pattern Extremities: Without obvious edema or lymphedema Neurological: Alert and orient x 3. Gait and speech within normal limits Psych: Affect appropriate for current situation Pathology: [place] score 3+4 equal 7 adenocarcinoma the prostate Impression: [place] score 7 adenocarcinoma the prostate current PSA approximately 6 Plan: I reviewed with the patient the various treatment options ranging from observation to androgen deprivation to external beam radiation and he has previously discussed surgery with Dr. Mendez. We reviewed the simulation process. We discussed the risks and side effects both acute and long-term. We discussed the planning involved in the daily treatment regiment. All of his questions were answered. His had no additional questions. At this point he is elected to proceed with the radiation. He will return to undergo simulation and begin his treatment shortly thereafter with a plan for a 5 and half week course of treatment. Signed by: 07/01/2024 1:22:31 PM <<Signature on File>> Time spent with patient:45 CPT Code: CPT Code:
--- NOTE | 2024-07-09 15:54 | ONCRAD TMN_ITS ---
Radiation Oncology Weekly Treatment Management Patient: Keon Kowalski MR#: [id number] : 1950 Attending Physician: Dr. Elio Joya Date of Service: 07/09/2024 Referring Physician(s) : Diagnosis: C61 - Malignant neoplasm of prostate, Diagnosed 07/02/2024 (Active) Radiotherapy to date: Course: prostate 70 Gy, Treatment Site: Prostate 70Gy, Ref. ID: [id number], Energy: 15X, Dose/Fx (cGy): 250, #Fx: , Dose Correction (cGy): 0, Total Dose Delivered (cGy): 500, Start Date: 07/08/2024, Elapsed Days: 1 Reason for visit: The patient is being seen today as part of their regularly scheduled weekly on treatment visits to assess for acute toxicities from radiotherapy. Review of Systems: Just began treatment. He has occasional nocturia. No dysuria. Good flow. Vital Signs: Performed on 07/09/2024 3:01 PM BMI - 30.41 kg/m2 (high), Height - 68 in, Weight - 200.0 lbs, Temperature - 97.2 f, Pulse - 85 /min, Respiration - 16 /min, O2 Sat - 98 %, Pain - 0, Fatigue - 0 and BP - 174/ 97 mm(hg)(high). Physical Exam: Imaging: Radiation therapy imaging related to accurate target localization (i.e. KV, MV and CBCT) was reviewed. Appropriate changes, if any, were made to ensure treatment accuracy. Plan: Good tolerance of treatment. Will continue as planned. Signed by: Dr. Elio Joya 07/09/2024 3:53:24 PM
--- NOTE | 2024-07-16 16:34 | ONCRAD TMN_ITS ---
Radiation Oncology Weekly Treatment Management Patient: Meghana Santana MR#: [id number] : 1950> Attending Physician: Dr. Elio Joya Date of Service: 07/16/2024 Referring Physician(s) : Diagnosis: C61 - Malignant neoplasm of prostate, Diagnosed 07/02/2024 (Active) Radiotherapy to date: Course: prostate 70 Gy, Treatment Site: Prostate 70Gy, Ref. ID: [id number], Energy: 15X, Dose/Fx (cGy): 250, #Fx: , Dose Correction (cGy): 0, Total Dose Delivered (cGy): 1,750, Start Date: 07/08/2024, Elapsed Days: 8 Reason for visit: The patient is being seen today as part of their regularly scheduled weekly on treatment visits to assess for acute toxicities from radiotherapy. Review of Systems: No sx changes. 1 to 2 x nocturia. Good flow. No pain. Normal bowels. Living alone independently. Vital Signs: Performed on 07/16/2024 3:20 PM BMI - 30.562 kg/m2 (high), Height - 68 in, Weight - 201 lbs, Temperature - 96.7 f, Pulse - 90 /min, Respiration - 18 /min, O2 Sat - 97 %, Pain - 0, Fatigue - 0 and BP - 179/ 102 mm(hg)(high). Physical Exam: omitted Imaging: Radiation therapy imaging related to accurate target localization (i.e. KV, MV and CBCT) was reviewed. Appropriate changes, if any, were made to ensure treatment accuracy. Plan: Good tolerance of treatment. Will continue as planned Signed by: Dr. Elio Joya 07/16/2024 4:33:08 PM
== END 2024-07-17 23:59 | disposition home or self-care (01) ==
PROVIDERS: PCP Family Medicine; Visit Provider Radiology Radiation Oncology
DX: Z51.0 Encounter for antineoplastic radiation therapy (principal); C61 Malignant neoplasm of prostate
CPT/HCPCS: 77300; 77301; 77334; 77338; 77385; 77386; 99024; 99205

== ENCOUNTER 2024-07-18 15:01 | Oncology outpatient (recurring) (ONCR) | payer MEDICARE, MEDICAID, SELFPAY | END 2024-07-18 23:59 | disposition home or self-care (01) | LOC: ONCMED 15:01 | PROVIDERS: PCP Family Medicine; Visit Provider Radiology Radiation Oncology | DX: Z51.0 Encounter for antineoplastic radiation therapy (principal); C61 Malignant neoplasm of prostate | CPT/HCPCS: 77336; 77385 ==

== ENCOUNTER 2024-08-07 14:42 | Oncology outpatient (recurring) (ONCR) | payer MEDICARE, SELFPAY ==
--- NOTE | 2024-07-23 15:53 | ONCRAD TMN_ITS ---
Radiation Oncology Weekly Treatment Management Patient: Meghana Santana MR#: [id number] : 1950> Attending Physician: Dr. Elio Joya Date of Service: 07/23/2024 Referring Physician(s) : Diagnosis: C61 - Malignant neoplasm of prostate, Diagnosed 07/02/2024 (Active) Radiotherapy to date: Course: prostate 70 Gy, Treatment Site: Prostate 70Gy, Ref. ID: [id number], Energy: 15X, Dose/Fx (cGy): 250, #Fx: , Dose Correction (cGy): 0, Total Dose Delivered (cGy): 3,000, Start Date: 07/08/2024, Elapsed Days: 15 Reason for visit: The patient is being seen today as part of their regularly scheduled weekly on treatment visits to assess for acute toxicities from radiotherapy. Review of Systems: No interval changes. Urination stable. 1 to 2 x nocturia. Good stream. No pain. Bowels ok. Active during the day. Vital Signs: Performed on 07/23/2024 3:09 PM BMI - 30.41 kg/m2 (high), Height - 68 in, Weight - 200.0 lbs, Temperature - 97.5 f, Pulse - 81 /min, Respiration - 18 /min, O2 Sat - 96 %, Pain - 0, Fatigue - 0 and BP - 162/ 78 mm(hg)(high/). Physical Exam: omitted Imaging: Radiation therapy imaging related to accurate target localization (i.e. KV, MV and CBCT) was reviewed. Appropriate changes, if any, were made to ensure treatment accuracy. Plan: Good tolerance of treatment .Continue as planned. Signed by: Dr. Elio Joya 07/23/2024 3:51:57 PM
--- NOTE | 2024-07-31 08:14 | ONCRAD TMN_ITS ---
Radiation Oncology Weekly Treatment Management Patient: Keon Kowalski MR#: [id number] : 1950 Attending Physician: Dr. Clemencia Panda Date of Service: 07/30/2024 Fractions: Referring Physician(s) : Diagnosis: C61 - Malignant neoplasm of prostate, Diagnosed 07/02/2024 (Active) Radiotherapy to date: Course: prostate 70 GyTreatment Site: Prostate 70Gy, Ref. ID: [id number], Energy: 15X, Dose/Fx (cGy): 250, #Fx: , Dose Correction (cGy): 0, Total Dose Delivered (cGy): 4,250, Start Date: 07/08/2024, Elapsed Days: 22 Reason for visit: The patient is being seen today as part of their regularly scheduled weekly on treatment visits to assess for acute toxicities from radiotherapy. Review of Systems: Patient continues to do well. He has had no change in bowel or bladder habits. Vital Signs: Performed on 07/30/2024 3:15 PM BMI - 30.562 kg/m2 (high), Height - 68 in, Weight - 201 lbs, Temperature - 96.9 f, Pulse - 86 /min, Respiration - 18 /min, O2 Sat - 99 %, Pain - 4, Fatigue - 0 and BP - 153/ 94 mm(hg)(high). Physical Exam: No changes on exam Imaging: Radiation therapy imaging related to accurate target localization (i.e. KV, MV and CBCT) was reviewed. Appropriate changes, if any, were made to ensure treatment accuracy. Plan: Will continue with his treatments as planned Signed by: Dr. Clemencia Panda 07/31/2024 8:14:05 AM
--- NOTE | 2024-08-06 15:47 | ONCRAD TMN_ITS ---
Radiation Oncology Weekly Treatment Management Patient: Meghana Santana MR#: [id number] : 1950> Attending Physician: Dr. Clemencia Panda Date of Service: 08/06/2024 Fractions 22 out of 28 Referring Physician(s) : Diagnosis: C61 - Malignant neoplasm of prostate, Diagnosed 07/02/2024 (Active) Radiotherapy to date: Course: prostate 70 Gy, Treatment Site: Prostate 70Gy, Ref. ID: [id number], Energy: 15X, Dose/Fx (cGy): 250, #Fx: , Dose Correction (cGy): 0, Total Dose Delivered (cGy): 5,500, Start Date: 07/08/2024, Elapsed Days: 29 Reason for visit: The patient is being seen today as part of their regularly scheduled weekly on treatment visits to assess for acute toxicities from radiotherapy. Review of Systems: Patient has had no additional changes. He has had no problems with bowel or bladder habits. Vital Signs: Performed on 08/06/2024 2:47 PM BMI - 37.739 kg/m2 (high), Height - 68 in, Weight - 200.5 lbs, Temperature - 97 f, Pulse - 64 /min, Respiration - 18 /min, O2 Sat - 97 %, Pain - 3, Fatigue - 0 and BP - 159/ 87 mm(hg)(high/). Physical Exam: No changes on exam Imaging: Radiation therapy imaging related to accurate target localization (i.e. KV, MV and CBCT) was reviewed. Appropriate changes, if any, were made to ensure treatment accuracy. Plan: Will continue with his treatments as planned. He has 6 treatments remaining Signed by: Dr. Clemencia Panda 08/06/2024 3:45:38 PM
== END 2024-08-07 23:59 | disposition home or self-care (01) ==
PROVIDERS: PCP Family Medicine; Visit Provider Radiology Radiation Oncology
DX: Z51.0 Encounter for antineoplastic radiation therapy (principal); C61 Malignant neoplasm of prostate
CPT/HCPCS: 77336; 77385; 99024

== ENCOUNTER 2024-08-14 13:08 | Oncology outpatient (recurring) (ONCR) | payer MEDICARE, SELFPAY ==
--- NOTE | 2024-08-13 15:38 | ONCRAD TMN_ITS ---
Radiation Oncology Weekly Treatment Management Patient: Keon Kowalski MR#: [id number] : 1950 Attending Physician: Dr. Clemencia Panda Date of Service: 08/13/2024 Fractions: 27 out of 28 Referring Physician(s) : Diagnosis: C61 - Malignant neoplasm of prostate, Diagnosed 07/02/2024 (Active) Radiotherapy to date: Course: prostate 70 Gy, Treatment Site: Prostate 70Gy, Ref. ID: [id number], Energy: 15X, Dose/Fx (cGy): 250, #Fx: 27 / 28, Dose Correction (cGy): 0, Total Dose Delivered (cGy): 6,750, Start Date: 07/08/2024, Elapsed Days: 36 Reason for visit: The patient is being seen today as part of their regularly scheduled weekly on treatment visits to assess for acute toxicities from radiotherapy. Review of Systems: Patient still denies any changes in bowel or bladder habits. Vital Signs: Performed on 08/13/2024 3:14 PM BMI - 29.954 kg/m2 (high), Height - 68 in, Weight - 197 lbs, Temperature - 97 f, Pulse - 86 /min, Respiration - 18 /min, O2 Sat - 99 %, Pain - 0, Fatigue - 0 and BP - 157/ 89 mm(hg)(high/). Physical Exam: No changes on exam Imaging: Radiation therapy imaging related to accurate target localization (i.e. KV, MV and CBCT) was reviewed. Appropriate changes, if any, were made to ensure treatment accuracy. Plan: Will continue with his last treatment tomorrow. I talked with him today about his 1 month follow-up with a PSA. He has done very well getting through his treatments with minimal changes Signed by: Dr. Clemencia Panda 08/13/2024 3:37:09 PM
== END 2024-08-17 23:59 | disposition home or self-care (01) ==
PROVIDERS: PCP Family Medicine; Visit Provider Radiology Radiation Oncology
DX: Z51.0 Encounter for antineoplastic radiation therapy (principal); C61 Malignant neoplasm of prostate
CPT/HCPCS: 77336; 77385; 99024

== ENCOUNTER 2024-09-17 13:13 | Oncology outpatient (recurring) (ONCR) | payer MEDICARE, SELFPAY | END 2024-09-17 23:59 | disposition home or self-care (01) | LOC: ONCMED 13:13 | PROVIDERS: PCP Family Medicine; Visit Provider Radiology Radiation Oncology | DX: C61 Malignant neoplasm of prostate (principal) | CPT/HCPCS: 36415; 84153 ==

== ENCOUNTER → 2024-11-04 15:14 | Outpatient (BNVA) | payer MEDICARE, SELFPAY | PROVIDERS: PCP Family Medicine; Visit Provider Family Medicine | DX: N39.0 Urinary tract infection, site not specified (principal) | CPT/HCPCS: 81000; 87086 ==

== ENCOUNTER → 2024-11-18 14:02 | Outpatient (BNVA) | payer MEDICARE, MEDICAID, SELFPAY | PROVIDERS: PCP Family Medicine; Visit Provider Family Medicine | DX: R30.0 Dysuria (principal) | CPT/HCPCS: 87086 ==

== ENCOUNTER 2024-12-16 09:41 | Oncology outpatient (recurring) (ONCR) | payer MEDICARE, MEDICAID, SELFPAY ==
[2024-12-16 10:55] LABS: Prostate Specific Antigen 0.568 ng/mL (0-4)
== END 2024-12-16 23:59 | disposition home or self-care (01) ==
LOC: ONCMED 09:41
PROVIDERS: PCP Family Medicine; Visit Provider Radiology Radiation Oncology
DX: C61 Malignant neoplasm of prostate (principal)
CPT/HCPCS: 36415; 84153

== ENCOUNTER → 2024-12-23 09:00 | Outpatient (BNVA) | payer MEDICARE, MEDICAID, SELFPAY | PROVIDERS: PCP Family Medicine; Visit Provider Nurse Practitioner Family | DX: I48.0 Paroxysmal atrial fibrillation (principal); I10 Essential (primary) hypertension; G47.33 Obstructive sleep apnea (adult) (pediatric); R06.02 Shortness of breath; Z95.0 Presence of cardiac pacemaker | CPT/HCPCS: 99214 ==

== ENCOUNTER → 2025-02-04 13:56 | Outpatient (BNVA) | payer MEDICARE, MEDICAID, SELFPAY | PROVIDERS: PCP Family Medicine; Visit Provider Internal Medicine Cardiovascular Disease | DX: I48.0 Paroxysmal atrial fibrillation (principal); I11.0 Hypertensive heart disease with heart failure; I50.32 Chronic diastolic (congestive) heart failure; Z95.0 Presence of cardiac pacemaker; I48.91 Unspecified atrial fibrillation; R06.02 Shortness of breath; I25.118 Atherosclerotic heart disease of native coronary artery with other forms of angina pectoris | CPT/HCPCS: 99215 ==

== ENCOUNTER 2025-02-21 10:21 | Outpatient (CLI) | payer MEDICARE, MEDICAID, SELFPAY ==
[2025-02-21 11:18] LABS: Basophils # 0.1 10^3/uL (0.0-0.1); Eosinophils # 0.4 10^3/uL (0.0-0.8); Eosinophils % 5.2 %; Hematocrit 43.7 % (37-53); Lymphocytes % 27.5 %; Mean Corpuscular HGB Conc 33.6 g/dL (30-55); Mean Corpuscular Hemoglobin 29.9 pg (27-33); Mean Platelet Volume 9.9 fL (7.4-10.4); Monocytes # 0.9 10^3/uL (0.2-0.9); Monocytes % 12.4 %; Neutrophils # 3.78 10^3/uL (1.8-7.7); Neutrophils % 53.5 %; Nucleated Red Blood Cells % 0 %; Platelet Count 146 10^3/cmm (157-399); Red Blood Count 4.91 10^6/uL (3.85-5.65); Red Cell Distribution Width 13.9 % (12.1-15.1); White Blood Count 7.08 10^3/uL (3.29-11.43)
[2025-02-21 11:50] LABS: Anion Gap 13.4 (5-19); Blood Urea Nitrogen 14 mg/dL (8-23); Calcium 8.7 mg/dL (8.5-10.5); Carbon Dioxide 28 mmol/L (22-29); Chloride 97 mmol/L (98-107); Glucose 112 mg/dL (65-115); Osmolality Calculated 279 mOsm/kg (285-295); Potassium 4.4 mmol/L (3.5-5.1); Prostate Specific Antigen 0.385 ng/mL (0-4); Sodium 134 mmol/L (136-145)
== END 2025-02-21 10:22 | disposition home or self-care (01) ==
LOC: LAB 10:22
PROVIDERS: Radiology Radiation Oncology; PCP Family Medicine; Visit Provider Internal Medicine Cardiovascular Disease
DX: R06.02 Shortness of breath (principal); C61 Malignant neoplasm of prostate; I48.91 Unspecified atrial fibrillation; Z79.01 Long term (current) use of anticoagulants; Z45.010 Encounter for checking and testing of cardiac pacemaker pulse generator [battery]; I25.118 Atherosclerotic heart disease of native coronary artery with other forms of angina pectoris
CPT/HCPCS: 36415; 80048; 84153; 85025; 85610; 86850; 86900

== ENCOUNTER 2025-02-24 07:12 | Outpatient (CLI) | payer MEDICARE, MEDICAID, SELFPAY ==
[2025-02-24] VITALS (12 sets, daily range): BP systolic 118–150; BP diastolic 67–94; PULSE 59–76; RESP 16–18; TEMP 36.4–36.8; O2SAT 94–96; BMI 30.7
--- NOTE | 2025-02-24 07:53 | W.PM.OPSUD ---
Surgery/Procedure H&P Update DATE OF PROCEDURE: February 24, 2025 DATE H&P PERFORMED: 02/04/25 H&P UPDATE INFORMATION: I have reviewed H&P completed within last 30 days, I have examined patient prior to procedure and No changes to prior documentation PREOP DIAGNOSIS: Pacemaker ANTHONY PRIMARY INDICATION FOR PROCEDURE: Patient with a history of atrial fibrillation, essential benign hypertension, obstructive sleep apnea, status post permanent pacer implantation for symptomatic bradycardia PLANNED PROCEDURE: Operation Date: 02/24/25 08:30 Proposed Procedures p Pacemaker Generator Change - REM/REP Dual PPM(Not Applicable) - Felecia Barrera MD PATIENT REASSESSED PRIOR TO SEDATION, WITH NO CHANGE NOTED: Yes PHYSICAL EXAM: alert, oriented x 3 and clear to auscultation bilaterally AIRWAY EVAL/ANESTHESIA PLAN: normal airway, see other exam findings, ASA II, Monitored Anesthesia, Local Anesthesia, Risks, benefits & alternatives of sedation and/or procedure discussed and Patient agrees to continue as planned
--- NOTE | 2025-02-24 10:01 | PM.OP ---
Operative Report Date of procedure: February 24, 2025 Surgeon: Felecia Barrera MD Brief History: This patient had a permanent pacemaker for intermittent atrial fibrillation/symptomatic bradycardia. The pacemaker was found to be in ANTHONY. Procedure: PROCEDURE: PACEMAKER REVISION PREOPERATIVE DIAGNOSIS: Pacemaker elective replacement indication. POSTOPERATIVE DIAGNOSIS: Pacemaker elective replacement indication. ESTIMATED BLOOD LOSS: None COMPLICATIONS: None. BRIEF HISTORY: The patient is 75-year-old white male who had a permanent pacemaker implantation for symptomatic bradycardia/atrial fibrillation. The patient was found to have elective replacement indication, during routine office followup evaluation. For further management of patient's condition for the symptomatic bradycardia, the patient required a pacemaker revision. Patient required a dual-chamber pacemaker for symptom relief and the need for AV synchrony The procedure was explained to the patient and his family in detail with the risks and benefits. The risks of bleeding, hematoma, vascular injury, infection and other concomitant complications were explained in detail, which the patient understood well and consented to proceed. PROCEDURES PERFORMED: 1. Explantation of the old pacemaker generator. 2. Implantation of the new generator. The patient brought to the Cardiac Investments Manager. The left side of the neck and the subclavian area were cleaned and draped in a sterile fashion. 1% Xylocaine was used for local anesthetic agent. A 2 inch long incision was made just below the previous pacemaker scar. By sharp and blunt dissection, the pacemaker pocket was accessed. The old generator was delivered from the pocket. The generator was detached from the lead. The new Medtronic generator was attached to the lead. The pacemaker pocket was copiously irrigated with vancomycin solution. Complete hemostasis was achieved. The lead was positioned behind the generator and the generator was attached to the pectoralis fascia by suturing with 0 Surgilon. Sponge counts were confirmed. The pacemaker pocket was closed in layers. Skin was approximated using 4-0 Vicryl. EXPLANTED DEVICE: Pacemaker Generator: Date of implant: 06/09/1970 Brand: Advisa. Model number: [id number] 01. Serial number: [id number]. Make : Medtronic IMPLANTED DEVICES: Ventricular Lead: Date of implantation: 06/09/2017 Model number: 5076/58 Serial number: [id number] Make: Medtronic. Atrial lead Date of implantation: 06/09/1970 Model number: 5076/50 Serial number: [id number] Make: Medtronic. Implanted Generator: Date of implantation : 02/24/2025 Brand: Angi XT DR MRI Surescan. Model number: W1 DR 01 Serial number: [id number] Make: Clipsure Stimulation Threshold: The ventricular sensing was 13.4 millivolts. Ventricular lead impedance was 380 ohms and the pacing threshold was 1.0 volts at 0.4 milliseconds. The atrial sensing was 1.4 millivolts. Atrial lead impedance was 437 ohms and the pacing threshold was not obtained since the patient was in atrial fibrillation The pacemaker was set for VVIR mode with an upper rate of 130 and a lower rate of 60. A pressure dressing was applied over the pacemaker site. The patient was transferred back to medical floor in stable condition. Sponge counts were correct.
--- NOTE | 2025-02-24 10:12 | PC.NURSE ---
Patient arrived to CPRU 2 post pacemaker generator change until medsur bed available . Pt alert and oriented X 3, breathing even and non-labored on room air. Denies pain. Dressing to left chest clean, dry, and intact. No signs of bleeding or hematoma. Placed on bedside cardiac cath lab radiology technologist. Call light in reach, family at bedside.
[2025-02-24] MEDS: FUROsemide 40 mg Tablet PO (11:04)
[2025-02-24] MEDS: metoprolol tartrate 25 mg Tablet PO ×2 (11:04→16:56)
[2025-02-24] MEDS: finasteride 5 mg Tablet PO (11:04)
[2025-02-24] MEDS: lisinopril 20 mg Tablet PO (16:56)
[2025-02-24] MEDS: ceFAZolin 2,000 mg SDV 2000 MG IVP (16:56)
[2025-02-24] MEDS: montelukast sodium 10 mg Tablet PO (20:15)
[2025-02-24] MEDS: tamsulosin 0.4 mg Capsule PO (20:15)
[2025-02-24] MEDS: MELATONIN 3 MG TABLET 9 MG PO (20:15)
[2025-02-25] MEDS: ceFAZolin 2,000 mg SDV 2000 MG IVP ×2 (01:47→08:58)
[2025-02-25] MEDS: HYDROcodone-acetaminophen 5-325 mg Tablet 1 TAB PO (05:30)
[2025-02-25 06:00] VITALS: PULSE 63
--- NOTE | 2025-02-25 06:00 | ECG_ITS ---
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 Measurements Intervals [place] Rate: 62 P: 0 MD: 0 QRS: 269 QRSD: 176 T: 86 QT: 494 QTc: 502 Interpretive Statements ELECTRONIC VENTRICULAR PACEMAKER ABNORMAL RHYTHM ECG Compared to ECG 09/04/2022 01:31:14 No significant changes Electronically Signed On 02-26-2025 22:20:58 CDT by Felecia Barrera M.D. [email or web address]
[2025-02-25 07:25] VITALS: BP 112/68; PULSE 67; RESP 16; TEMP 36.7; O2SAT 95
--- NOTE | 2025-02-25 08:40 | P.PN_ITS ---
Subjective Subjective: Patient is feeling okay with no chest pain or shortness of breath. No hematoma bleeding from the pacemaker revision site. Vital signs are stable. No new symptoms. Has been tolerating the antibiotics so far well. Medications: Medication Review Details: Current Medications Hydrocodone Bitart/Acetaminophen (Hydrocodone-Acetaminophen 5-325 Mg Tablet) 1 tab PO BID PRN PRN Reason: PAIN Last Admin: 02/25/25 05:30 Dose: 1 tab Albuterol Sulfate (Albuterol 2.5 Mg/3 Ml Neb) 2.5 mg INHALATION Q6H.RESP PRN PRN Reason: shortness of breath or wheezing Cefazolin Sodium (Cefazolin 2,000 Mg Sdv) 2,000 mg IVP Q8H [facility]; Protocol Stop: 02/25/25 09:01 Last Admin: 02/25/25 01:47 Dose: 2,000 mg Citalopram Hydrobromide (Citalopram 20 Mg Tablet) 10 mg PO DAILY [facility] Docusate Sodium (Docusate Sodium 100 Mg Capsule) 100 mg PO BID PRN PRN Reason: CONSTIPATION Finasteride (Finasteride 5 Mg Tablet) 5 mg PO DAILY [facility] Last Admin: 02/24/25 11:04 Dose: 5 mg Furosemide (Furosemide 40 Mg Tablet) 40 mg PO DAILY [facility] Last Admin: 02/24/25 11:04 Dose: 40 mg Sodium Chloride (Sodium Chloride 0.9%) 1,000 mls @ 75 mls/hr IV .[id number] [facility] Last Admin: 02/24/25 21:57 Dose: Not Given Lisinopril (Lisinopril 20 Mg Tablet) 20 mg PO BID [facility] Last Admin: 02/24/25 16:56 Dose: 20 mg Magnesium Hydroxide (Magnesium Hydroxide 30 Ml Udc) 15 ml PO DAILY PRN PRN Reason: CONSTIPATION Melatonin (Melatonin 3 Mg Tablet) 9 mg PO BEDTIME [facility] Last Admin: 02/24/25 20:15 Dose: 9 mg Metoprolol Tartrate (Metoprolol Tartrate 25 Mg Tablet) 25 mg PO BID [facility] Last Admin: 02/24/25 16:56 Dose: 25 mg Montelukast Sodium (Montelukast Sodium 10 Mg Tablet) 10 mg PO BEDTIME [facility] Last Admin: 02/24/25 20:15 Dose: 10 mg Polyethylene Glycol (Polyethylene Glycol 3350 Pkt 17 Gm) 17 gm PO BID [facility] Last Admin: 02/24/25 15:37 Dose: Not Given Potassium Chloride (Potassium Chloride Er 10 Meq Tablet) 10 meq PO DAILY [facility] Psyllium Hydrophilic Mucilloid (Psyllium Powder Pkt) 1 packet PO BID [facility] Last Admin: 02/24/25 15:37 Dose: Not Given Senna (Sennosides 8.6 Mg Tablet) 17.2 mg PO BID PRN PRN Reason: CONSTIPATION Simethicone (Simethicone 80 Mg Chew) 160 mg PO BID PRN PRN Reason: gas relief Tamsulosin HCl (Tamsulosin 0.4 Mg Capsule) 0.4 mg PO BEDTIME [facility] Last Admin: 02/24/25 20:15 Dose: 0.4 mg Vitals/I&O/Wt Last Vital Signs Temp 98.0 F 02/25/25 07:25 Pulse 67 02/25/25 07:25 Resp 16 02/25/25 07:25 BP 112/68 02/25/25 07:25 Pulse Ox 95 02/25/25 07:25 O2 Del Method Room Air 02/25/25 07:25 02/24/25 02/25/25 02/25/25 22:59 06:59 14:59 Intake Total 360 / 600 120 / 120 Balance 360 / 600 120 / 120 Weight last 48 hrs Weight 208 lb Weight 202 lb Weight 202 lb Physical Exam Narrative: GENERAL: The patient is alert and oriented times three. Not in any acute distress. HEENT: No significant pallor, icterus or lymphadenopathy.Oral cavity: There are no mucous membrane lesions. NECK: Trachea appears to be central. No masses noted. No JVD or thyromegaly appreciated. RESPIRATORY: Chest is symmetrical. No intercostals muscle retraction or any accessory muscle activation. There is no chest wall tenderness. Breath sounds are heard bilaterally. No rales or rhonchi heard. No evidence of any consolidation. The pacemaker insertion site has no hematoma or bleeding. BREASTS: Deferred. HEART: The heart sounds are normal. No S3 or S4. No significant murmurs. No pericardial rub ABDOMEN: No vessel pulsations or distention. No tenderness. No organomegaly appreciated. Bowel sounds are normally heard. : Deferred. RECTAL: Deferred. LYMPHATIC: No lymphadenopathy noted in the neck or groin. EXTREMITIES: No edema or cyanosis. No clubbing. Peripheral pulses are palpated in fairly good volume and amplitude MUSCULOSKELETAL: No acute joint deformities or swelling SKIN: There are no significant scars or skin rash noted. NEUROPSYCHIATRIC: The patient is alert and oriented x3. Appears to be in a good mood. No tremors or rigidity noted. A&P Assessment and plan (1) Pacemaker at end of battery life: Patient had a pacemaker revision yesterday. He is doing okay with no hematoma or bleeding. Pacemaker function appears to be appropriate. (2) Hypertension: Currently normotensive. May continue on the current medications. (3) Atrial fibrillation: The ventricular response rate is under control. The patient is mostly pacemaker dependent (4) Diastolic heart failure: Currently compensated. May continue on the current medications. Plan Patient may be discharged home today. Discharge orders are written. Appointment the [facility] in 1 week for pacemaker check and wound check PDMP PDMP Reviewed: Not Reviewed Attestations Medical Necessity Statement*: Discharge home today Coding Level of Care Code 37415 Diagnoses Pacemaker at end of battery life Z45.010 Essential hypertension I10 Hypertension type: essential hypertension Paroxysmal atrial fibrillation I48.0 Atrial fibrillation type: paroxysmal Chronic diastolic heart failure I50.32 Heart failure chronicity: chronic
[2025-02-25] MEDS: potassium chloride ER 10 mEq Tablet PO (08:57)
[2025-02-25] MEDS: citalopram 20 mg Tablet 10 MG PO (08:57)
[2025-02-25] MEDS: lisinopril 20 mg Tablet PO (08:58)
[2025-02-25] MEDS: FUROsemide 40 mg Tablet PO (08:58)
[2025-02-25] MEDS: finasteride 5 mg Tablet PO (08:58)
[2025-02-25] MEDS: metoprolol tartrate 25 mg Tablet PO (08:58)
[2025-02-25] MEDS: polyethylene glycol 3350 Pkt 17 gm PO (08:59)
[2025-02-25] MEDS: albuterol 2.5 mg/3 mL Neb INHALATION (09:43)
[2025-02-25 09:45] VITALS: PULSE 61; RESP 16; O2SAT 93
--- NOTE | 2025-02-25 10:36 | PC.CHAP ---
Pastoral Care Encounter/Spiritual Assessment Type of Contact [] Declined job forwarder visit [] Patient/Family/Request visit [] Outpatient visit [] Follow-up visit [] Physician referral [] Code/Alert [] Routine visit [] Staff referral [] Actively dying [] Patient sleeping [] Family support [] [] Out of room [] Palliative care [] [x] Receiving care in room [] Pre-surgical visit [] Trauma [] Long length of stay [] ICU visit [] Other: Relational/Emotional Strength [] Patient feels connected with others/family/visitors/staff [] Distress [] Loneliness/isolation [] Abandonment Spirituality of Patient [] Person of Yadira [] Attends Adventism of their Yadira [] Believes in Prayer [] Reads Bible or Samaritan materials [] There are Spiritual issues to be addressed Electrologist Interventions [] Prayer [] Active listening [] Non-anxious presence [] Spiritual/emotional support [] Crisis/trauma care [] Spiritual counseling [] Bereavement support [] Provided bereavement packet [] Provided Bible/devotional materials [] Provided toy/stuffed animal, coloring book to patient or family member [] Provided Communion [] Anointing/Butler [] Salvation [] Completed spiritual assessment [] Other: Impact on Illness or Injury [] Angry [] Fearful [] Anxious [] Often cries [] Exhaustion [] Unable to work [] Unable to attend oriental orthodox [] Unable to walk/stand [] Unable to read [] Unable to drive [] Unable to eat/drink [] Unable to sleep [] Unable to be with family [] Patient intubated [] Other: Summary Time spent with patient
[2025-02-25 11:58] VITALS: BP 124/74; PULSE 60; RESP 18; TEMP 36.5; O2SAT 97
--- NOTE | 2025-02-25 13:19 | PC.NURSE ---
Discussed discharge with patient. Went over new medications, continued medications and all restrictions due to pacemaker. Went over follow up appoints as well. Patient verbalized understanding.
== END 2025-02-25 11:29 | disposition home or self-care (01) ==
LOC: CCL 07:14 → MEDSURG 18:05
PROVIDERS: PCP Family Medicine; Visit Provider Internal Medicine Cardiovascular Disease
DX: Z45.010 Encounter for checking and testing of cardiac pacemaker pulse generator [battery] (principal); I11.0 Hypertensive heart disease with heart failure; I50.32 Chronic diastolic (congestive) heart failure; G47.33 Obstructive sleep apnea (adult) (pediatric); K21.9 Gastro-esophageal reflux disease without esophagitis; Z82.49 Family history of ischemic heart disease and other diseases of the circulatory system
CPT/HCPCS: 33228; 36415; 93005; 94640; 97165; 99152; 99153; C1769; C1786; J0690; J2250; J3010; J3370; J7030; J7050; J7613; J9999

== ENCOUNTER → 2025-03-06 14:50 | Outpatient (BNVA) | payer MEDICARE, MEDICAID, SELFPAY | PROVIDERS: PCP Family Medicine; Visit Provider Nurse Practitioner Family | DX: Z09 Encounter for follow-up examination after completed treatment for conditions other than malignant neoplasm (principal); I48.91 Unspecified atrial fibrillation; Z95.0 Presence of cardiac pacemaker | CPT/HCPCS: 99214 ==

== ENCOUNTER 2025-03-17 10:34 | Oncology outpatient (recurring) (ONCR) | payer MEDICARE, MEDICAID, SELFPAY | END 2025-03-17 23:59 | disposition home or self-care (01) | PROVIDERS: PCP Family Medicine; Visit Provider Radiology Radiation Oncology | DX: C61 Malignant neoplasm of prostate (principal) | CPT/HCPCS: 36415 ==

== ENCOUNTER → 2025-04-15 11:40 | Outpatient (BNVA) | payer MEDICARE, MEDICAID, SELFPAY | PROVIDERS: PCP Family Medicine; Visit Provider Family Medicine | DX: Z51.81 Encounter for therapeutic drug level monitoring (principal) | CPT/HCPCS: 80053 ==

== ENCOUNTER 2025-06-24 14:59 | Oncology outpatient (recurring) (ONCR) | payer MEDICARE, MEDICAID, SELFPAY ==
[2025-06-24 15:43] LABS: Prostate Specific Antigen 0.285 ng/mL (0-4)
--- NOTE | 2025-06-25 09:35 | ONCRAD EPV_ITS ---
Radiation Oncology Established Patient Visit Patient: Keon Kowalski [id number] : 1950 Age: 75 Sex: Male Dictated by: Dr. Clemencia Panda Date of Service: 06/24/2025 Referring Physician(s) : Diagnosis: C61 - Malignant neoplasm of prostate, Diagnosed 07/02/2024 (Active) Radiotherapy to Date: Course: prostate 70 Gy, Treatment Site: Prostate 70Gy, Ref. ID: [id number], Energy: 15X, Dose/Fx (cGy): 250, #Fx: / 28, Dose Correction (cGy): 0, Total Dose Delivered (cGy): 7,000, Start Date: 07/08/2024, End Date: 08/14/2024, Elapsed Days: 37 Current History: Patient is a 75-year-old gentleman who completed radiation in July 2024 for prostate cancer. He has had serial PSAs and is here today for his first follow-up. His PSAs have been declining nicely and his most recent from today was 0.2 his bowel and bladder habits have returned to normal. He has a good appetite. He denies any new aches or pains. He is sleeping well. Current Medications: albuterol sulfate 90 mcg/actuation (Ventolin HFA) 2 puffs inhalation Q6H PRN citalopram 10 mg PO DAILY docusate sodium 100 mg PO BID PRN enalapril maleate 20 mg PO BID finasteride 5 mg PO DAILY furosemide 40 mg PO DAILY hydrocodone-acetaminophen 5-325 mg 1 tab PO BID PRN magnesium hydroxide (Milk of Magnesia) 15 mL PO DAILY PRN melatonin ER 10 mg PO BEDTIME metoprolol tartrate 25 mg PO BID montelukast 10 mg PO BEDTIME polyethylene glycol 3350 (Miralax) 17 grams PO BID potassium chloride ER (Klor-Con M) 10 mEq PO DAILY psyllium husk (Metamucil) 1 tbsp PO BID sennosides (senna) 17.2 mg (2 x 8.6 mg) PO BID PRN simethicone (Gas Relief (simethicone)) 180 mg PO BID PRN sulindac 150 mg PO BID tamsulosin 0.4 mg PO BEDTIME Allergies: No known allergies Current Complaints / Review of Systems: . Vital Signs: Performed on 06/24/2025 2:49 PM BMI - 31.444 kg/m2 (high), Height - 68 in, Weight - 206.8 lbs, Temperature - 96.5 f, Pulse - 62 /min, Respiration - 18 /min, O2 Sat - 98 %, Pain - 4, Fatigue - 0 and BP - 177/ 92 mm(hg)(high). Physical Exam: General: Alert and oriented x 3. No acute distress. HEENT: Normocephalic, atraumatic. Extraocular Movements Intact: Pupils Equal, Round, Reactive to Light and Accommodation: Sclerae anicteric. LUNGS:. Respiratory rate is regular nonlabored HEART: Regular rate and rhythm, ABDOMEN: Moderately protuberant android pattern EXTREMITIES: No peripheral edema is identified. NEUROLOGIC: Alert and orient x 3. Gait and speech within normal limits. Performance Status: 100 Lab: None pending. Pathology: Primary, c61 - malignant neoplasm of prostate, Diagnosed 07/02/2024 (active) . Imaging: See HPI Impression: Adenocarcinoma the prostate now nearly a year out from completion of treatment Plan: At this time his PSA has continued to decline over the last year. He is doing well clinically. Of asked him at this point to return in 6 months with a PSA or call if any problems should arise in the interim he currently does not have anyone else following his PSAs. Signed by: 06/25/2025 9:33:24 AM <<Signature on File>> Time spent with patient:30 CPT Code: CPT Code:
== END 2025-07-18 23:59 | disposition home or self-care (01) ==
PROVIDERS: PCP Family Medicine; Visit Provider Radiology Radiation Oncology
DX: C61 Malignant neoplasm of prostate (principal); Z92.3 Personal history of irradiation
CPT/HCPCS: 84153; 99214

== ENCOUNTER → 2025-08-12 11:02 | Outpatient (BNVA) | payer MEDICARE, MEDICAID, SELFPAY | PROVIDERS: PCP Family Medicine; Visit Provider Nurse Practitioner Family | DX: I48.91 Unspecified atrial fibrillation (principal); I11.0 Hypertensive heart disease with heart failure; I50.30 Unspecified diastolic (congestive) heart failure; Z95.0 Presence of cardiac pacemaker | CPT/HCPCS: 99213 ==

== ENCOUNTER → 2025-09-08 11:41 | Outpatient (BNVA) | payer MEDICARE, MEDICAID, SELFPAY | PROVIDERS: PCP Family Medicine; Visit Provider Internal Medicine Cardiovascular Disease | DX: Z45.018 Encounter for adjustment and management of other part of cardiac pacemaker (principal) | CPT/HCPCS: 93296 ==